=== PATIENT | male | born 1995 | race Caucasian/White ===

== ENCOUNTER 2020-10-14 04:36 | Emergency (ER) | payer BC, SELFPAY ==
[~2020-10-14] VITALS: Ht 167.6 cm; Wt 149.7 kg
[2020-10-14 04:38] VITALS: Ht 167.6 cm; Wt 149.7 kg
[2020-10-14 06:14] VITALS: BP 129/88
== END 2020-10-14 06:14 | disposition home or self-care (01) ==
LOC: ED 04:36
DX: U07.1 COVID-19 (principal); B34.9 Viral infection, unspecified; I10 Essential (primary) hypertension
CPT/HCPCS: U0003